=== PATIENT | male | born 1955 | race Caucasian/White ===

== ENCOUNTER 2024-03-04 19:41 | Emergency (ER) | payer BC, MEDICARE ==
[2024-03-04] MEDS ORDERED: Cephalexin 500 MG Cap PO ONE (21:46)
== END 2024-03-04 22:41 | disposition home or self-care (01) ==
LOC: JD.ED 19:41
DX: S01.311A Laceration without foreign body of right ear, initial encounter (principal); Z88.0 Allergy status to penicillin; Z88.5 Allergy status to narcotic agent; Z88.8 Allergy status to other drugs, medicaments and biological substances; Z79.899 Other long term (current) drug therapy; W20.8XXA Other cause of strike by thrown, projected or falling object, initial encounter; Y99.0 Civilian activity done for income or pay
CPT/HCPCS: 12013; 99282